=== PATIENT | male | born 2000 | race African-American/Black ===

== ENCOUNTER 2021-12-25 10:30 | Emergency (ER) | payer OTHER ==
[~2021-12-25] VITALS: Ht 175.3 cm; Wt 100.0 kg
[2021-12-25] MEDS ORDERED: ACETAMINOPHEN 325MG TABLET PO ONE (11:00)
[2021-12-25] MEDS ORDERED: IBUP-2029 MT (11:35)
[2021-12-25] MEDS ORDERED: ACET-2708 MT (11:35)
[2021-12-25 11:58] VITALS: BP 126/86
== END 2021-12-25 11:59 | disposition home or self-care (01) ==
LOC: ER 10:55
DX: S62.366A Nondisplaced fracture of neck of fifth metacarpal bone, right hand, initial encounter for closed fracture (principal); W22.8XXA Striking against or struck by other objects, initial encounter; Y93.89 Activity, other specified; Y92.89 Other specified places as the place of occurrence of the external cause; Y99.8 Other external cause status
CPT/HCPCS: 29125; 73130; 99283